=== PATIENT | male | born 1930 | race Caucasian/White ===

== ENCOUNTER 2016-10-10 18:11 | Day surgery (SDCO) | payer OTHER ==
[~2016-10-10] VITALS: Ht 176.5 cm; Wt 108.1 kg
[2016-10-10 18:57] LABS: INR 1.05 (0.9-1.2); PROTHROMBIN TIME 13.3 SECONDS (11.7-14.0); PTT 26.9 SECONDS (23.2-31.4)
[2016-10-10 18:58] LABS: ALBUMIN 3.8 g/dL (3.4-4.8); BILIRUBIN - TOTAL 0.7 mg/dL (0.1-1.0); CREATININE 1.3 mg/dL (0.7-1.2); GLOBULIN (CALCULATION) 2.8 g/dL (2.2-4.2); MAGNESIUM 2.16 mg/dL (1.40-2.10); POTASSIUM 4.7 mmol/L (3.5-5.1); TOTAL PROTEIN 6.6 g/dL (6.4-8.3)
[2016-10-10 19:02] LABS: BASOPHIL 0.7 % (0-2); CKMB 2.75 ng/mL (0.97-4.94); EOSINOPHIL 2.2 % (0-7); HCT 45.5 % (42.0-52.0); LYMPHOCYTE 19.4 % (15-48); MCH 30.7 pg (25.0-31.0); MCV 93.2 fL (78.0-100.0); MONOCYTE 9.2 % (0-12); MYOGLOBIN 55 ng/mL (26-65); NEUTROPHIL 68.5 % (41-80); PLT 156 K/uL (150-400); PRO-BNP 432 pg/mL (0-450); RBC 4.88 M/uL (4.70-6.00); RDW 15.2 % (11.5-14.0); TROPONIN T < 0.010 ng/mL
[2016-10-10 19:03] LABS: WBC 9.5 K/uL (4.0-10.5)
--- NOTE | 2016-10-11 00:58 | NUR ---
PATIENT C/O CHEST PAIN, LEFT SHOULDER BLADE AREA AND LEFT SIDE OF NECK, GIVEN NTG 0.4 SL AT 0039 AND AGAIN AT 0044 WITH MORPHINE 2MG IV, HR-80'S, APICAL REGULAR NO NOTED CHANGE, HR-84 AFTER SECOND NTG, REPORTED PAIN EASED, NURSE PRACTIONER JEANNE WANG INFORMED
[2016-10-11 01:07] LABS: CKMB 2.13 ng/mL (0.97-4.94); TROPONIN T < 0.010 ng/mL
[2016-10-11 06:42] LABS: BASOPHIL 0.7 % (0-2); EOSINOPHIL 2.8 % (0-7); HCT 43.4 % (42.0-52.0); LYMPHOCYTE 16.9 % (15-48); MCH 30.6 pg (25.0-31.0); MCHC 32.3 g/dL (32.0-36.0); MCV 94.8 fL (78.0-100.0); MONOCYTE 11.3 % (0-12); MPV 10.9 fL (6.0-9.5); NEUTROPHIL 68.3 % (41-80); PLT 152 K/uL (150-400); RBC 4.58 M/uL (4.70-6.00); WBC 10.5 K/uL (4.0-10.5)
[2016-10-11 07:17] LABS: CKMB 1.85 ng/mL (0.97-4.94); TROPONIN T < 0.010 ng/mL
[2016-10-11 07:19] LABS: CREATININE 1.2 mg/dL (0.7-1.2); POTASSIUM 4.2 mmol/L (3.5-5.1)
[2016-10-12 04:32] LABS: HCT 42.9 % (42.0-52.0); HGB 13.8 g/dl (13.2-18.0); MCH 30.4 pg (25.0-31.0); MCHC 32.2 g/dL (32.0-36.0); MCV 94.5 fL (78.0-100.0); MPV 10.2 fL (6.0-9.5); RBC 4.54 M/uL (4.70-6.00); RDW 14.9 % (11.5-14.0); WBC 9.8 K/uL (4.0-10.5)
[2016-10-12 04:56] LABS: CREATININE 1.2 mg/dL (0.7-1.2); POTASSIUM 4.4 mmol/L (3.5-5.1)
[2016-10-13 04:02] LABS: HCT 42.5 % (42.0-52.0); HGB 13.9 g/dl (13.2-18.0); MCH 30.7 pg (25.0-31.0); MCHC 32.7 g/dL (32.0-36.0); MCV 93.8 fL (78.0-100.0); MPV 10.3 fL (6.0-9.5); RBC 4.53 M/uL (4.70-6.00); RDW 14.6 % (11.5-14.0); WBC 11.2 K/uL (4.0-10.5)
[2016-10-13 04:24] LABS: CREATININE 1.3 mg/dL (0.7-1.2); POTASSIUM 4.2 mmol/L (3.5-5.1)
[2016-10-13] MEDS ORDERED: ASPIRIN CHEWABL81 MG PO (10:14)
[2016-10-13] MEDS ORDERED: CINNAMON500 MG PO (10:15)
[2016-10-13] MEDS ORDERED: LASIX40 MG PO (10:15)
[2016-10-13] MEDS ORDERED: CELEXA40 MG PO (10:15)
[2016-10-13] MEDS ORDERED: LOVAZA1 GM PO (10:15)
[2016-10-13] MEDS ORDERED: LIPITOR20 M1 PO (10:15)
[2016-10-13] MEDS ORDERED: LANTUS **100 UNITS/ SC (10:16)
[2016-10-13] MEDS ORDERED: MAGNESIUM OXID500 MG PO (10:16)
[2016-10-13] MEDS ORDERED: ZESTRIL5 MG PO (10:16)
[2016-10-13] MEDS ORDERED: COLACE100 MG PO (10:17)
[2016-10-13] MEDS ORDERED: LOPRESSOR25 MG PO (10:17)
[2016-10-13] MEDS ORDERED: NOVOLOG VI100 UNIT/1 SC (10:17)
[2016-10-13] MEDS ORDERED: K-DUR20 MEQ PO (10:17)
[2016-10-13] MEDS ORDERED: VITAMIN D1000 UNI1 PO (10:18)
== END 2016-10-13 13:10 | disposition home or self-care (01) ==
LOC: FER 18:11 → FTCU 21:10
PROVIDERS: Internal Medicine; Internal Medicine Cardiovascular Disease; ADMIT Internal Medicine
DX: I11.0 Hypertensive heart disease with heart failure (principal); I50.30 Unspecified diastolic (congestive) heart failure; I25.10 Atherosclerotic heart disease of native coronary artery without angina pectoris; I25.2 Old myocardial infarction; E11.9 Type 2 diabetes mellitus without complications; E78.5 Hyperlipidemia, unspecified; Z79.82 Long term (current) use of aspirin; Z79.4 Long term (current) use of insulin; Z79.899 Other long term (current) drug therapy; Z90.89 Acquired absence of other organs; Z90.49 Acquired absence of other specified parts of digestive tract; Z87.442 Personal history of urinary calculi; Z95.5 Presence of coronary angioplasty implant and graft; Z86.73 Personal history of transient ischemic attack (TIA), and cerebral infarction without residual deficits
CPT/HCPCS: 36415; 36600; 71010; 80048; 80053; 80061; 82550; 82553; 82803; 82962; 83036; 83735; 83874; 83880; 84443; 84484; 85025; 85610; 85730; 93005; 96372; 97162; 97166; 97530-GP; 97535; G0378; J1815; J1940; J2270